=== PATIENT | male | born 1995 | race Two or more races ===

== ENCOUNTER 2021-06-02 17:53 | Emergency (ER) | payer SELFPAY ==
[~2021-06-02] VITALS: Ht 180.3 cm; Wt 104.3 kg
[2021-06-02 17:59] VITALS: BP 148/81
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
[2021-06-02] MEDS ORDERED: HYDROCODONE/APAP 5/325MG TABLET ONE (18:46)
[2021-06-02] MEDS ORDERED: HYDROCODONE/APAP 5/325MG TABLET PO ONE (19:00)
--- NOTE | 2021-06-02 19:11 | NUR ---
REPORT GIVEN TO LEXI CROWE FOR EMIR
[2021-06-02] MEDS ORDERED: HYDR-4303 PO (19:25)
[2021-06-02] MEDS ORDERED: IBUP-1955 PO (19:25)
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
== END 2021-06-02 22:22 | disposition home or self-care (01) ==
LOC: ER 17:54
DX: M25.561 Pain in right knee (principal); J45.909 Unspecified asthma, uncomplicated; Z79.899 Other long term (current) drug therapy; V23.4XXA Motorcycle driver injured in collision with car, pick-up truck or van in traffic accident, initial encounter; Y93.55 Activity, bike riding; Y92.89 Other specified places as the place of occurrence of the external cause; Y99.8 Other external cause status
CPT/HCPCS: 73564-TC